=== PATIENT | female | born 1995 | race African-American/Black ===

== ENCOUNTER 2016-08-29 22:49 | Emergency (ER) | payer OTHER ==
[~2016-08-29] VITALS: Ht 152.4 cm; Wt 49.9 kg
[~2016-08-29 22:49] MED LIST: ACET-704 PO; AZIT250T PO; BENZ100C PO; HYDR30CR61 TP; IBUP-1060 PO; NAPR250T2 PO; PENI500T PO; PRED20TA PO; PRED50TA PO; PROAIR HFA8.5 GM INH
[2016-08-29 22:57] VITALS: BP 96/58
--- NOTE | 2016-08-30 00:22 | PHYS DOC ---
Past Medical History Past Medical History: No Pertinent History Past Surgical History: No Surgical History Additional Information: nonsmoker Alcohol Use: None Drug Use: None Adult General Chief Complaint Chief Complaint: MULTIPLE COMPLAINTS HPI HPI Patient is a 21 year old female who presents with URI symptoms for 1 week. She reports subjective fever, sore throat, nonproductive cough, and nasal congestion. She has had loose stools with each meal eaten. She denies shortness of breath, ear pain, nausea, vomiting, or abdominal pain. She denies any known sick contacts. Her LMP was 07/10/16. She does not have a PCP. Review of Systems Review of Systems Constitutional: Reports subjective fever. Eyes: Denies change in visual acuity, redness, or eye pain. [] HENT: Denies ear pain. Reports sore throat and nasal congestion. Respiratory: Denies shortness of breath. Reports nonproductive cough. Cardiovascular: Denies chest pain, palpitations or edema. [] GI: Denies abdominal pain, nausea, vomiting, bloody stools. Reports loose stools. : Denies dysuria, hematuria or urinary frequency. [] Musculoskeletal: Denies back pain or joint pain. Reports body aches. Integument: Denies rash or skin lesions. [] Neurologic: Denies focal weakness or sensory changes. Reports headache. Endocrine: Denies polyuria or polydipsia. [] Psych: Denies anxiety or depression. [] All systems reviewed and negative unless otherwise stated in the HPI. Allergies Allergies Allergies Coded Allergies Type Severity Reaction Last Updated Verified No Known Drug Allergies 08/25/14 No Physical Exam Physical Exam Constitutional: Well developed, well nourished, no acute distress, non-toxic appearance. [] HENT: Normocephalic, atraumatic, bilateral external ears normal, oropharynx moist, no oral exudates, nose normal. Bilateral TMs without erythema or bulging. There is no posterior pharyngeal erythema or tonsillar edema. There is cobblestoning of the posterior pharynx with purulent post-nasal drip. Bilateral nasal turbinates are swollen and erythematous with purulent drainage. Eyes: PERRLA, EOMI, conjunctiva normal, no discharge. [] Neck: Normal range of motion, no tenderness, supple, no stridor. [] Cardiovascular: Heart rate regular rhythm, no murmur [] Lungs & Thorax: Bilateral breath sounds clear to auscultation without wheezes, rales, or rhonchi. Abdomen: Bowel sounds normal, soft, no tenderness, no masses, no pulsatile masses. [] Skin: Warm, dry, no erythema, no rash. [] Back: No tenderness, no CVA tenderness. [] Extremities: No tenderness, no cyanosis, no clubbing, ROM intact, no edema. [] Neurologic: Alert and oriented X 3, normal motor function, normal sensory function, no focal deficits noted. [] Psychologic: Affect normal, judgement normal, mood normal. [] Current Patient Data Vital Signs Vital Signs Date Time Temp Pulse Resp B/P Pulse Ox O2 Delivery O2 Flow Rate FiO2 08/29/16 22:57 97.9 100 18 100 Room Air 97.9 Lab Values Laboratory Tests Test 08/29/16 23:21 POC Urine HCG, Qualitative Hcg positive (Negative) EKG EKG [] Radiology/Procedures Radiology/Procedures [] Course & Med Decision Making Course & Med Decision Making Pertinent Labs and Imaging studies reviewed. (See chart for details) [] Dragon Disclaimer Dragon Disclaimer This electronic medical record was generated, in whole or in part, using a voice recognition dictation system. Departure Departure Impression: Primary Impression: Viral syndrome Disposition: HOME, SELF-CARE Condition: STABLE Referrals: NO PCP (PCP) Patient Instructions: Viral Syndrome Additional Instructions: Your symptoms appear to be caused by a virus. Viral infections are not treated with antibiotics. Your test is positive. Please take Tylenol for fever or pain. Ibuprofen is not recommended during . Please begin taking vitamins daily. Please follow up with the OB doctor listed below for routine care. Return to the emergency department if you have any new or concerning symptoms. Scripts Vits W-Ca,Fe,Fa(<1MG) ( Vitamins)1 Each Tablet1 Each PO DAILY # 30 Prov:KAREN QUILES 08/30/16 KAREN QUILES Aug 30, 2016 00:22
[2016-08-30] MEDS ORDERED: PREN1TAB58 PO (00:34)
== END 2016-08-30 00:43 | disposition home or self-care (01) ==
LOC: ER 22:49
DX: B34.9 Viral infection, unspecified (principal); R19.7 Diarrhea, unspecified
CPT/HCPCS: 81025; 99282

== ENCOUNTER 2016-10-04 17:14 | Inpatient (IN) | payer OTHER ==
[~2016-10-04] VITALS: Ht 165.1 cm; Wt 49.0 kg
[~2016-10-04 17:14] MED LIST changes: +PREN1TAB58 PO
[2016-10-04] MEDS ORDERED: TERBUTALINE 1 MG/ML VIAL. SQ PRN (17:30)
[2016-10-04] MEDS ORDERED: OXYTOCIN 30 UNIT/500 ML PREMIX 500 ML IV PRN (17:30)
[2016-10-04] MEDS ORDERED: LIDOCAINE 1% PF 30 ML VIAL. INJ PRN (17:30)
[2016-10-04] MEDS ORDERED: ONDANSETRON PF 4 MG/2 ML VIAL. IV PRN (17:30)
[2016-10-04] MEDS ORDERED: 0.9 % SODIUM CHLORIDE 10 ML DISP.SYRIN. IV PRN (17:30)
[2016-10-04] MEDS ORDERED: IBUPROFEN 600 MG TABLET. PO PRN (17:30)
[2016-10-04] MEDS: IV RINGERS,LACTATED 1000ML 1,000 ML IV SCH ×2 (17:52→22:08)
[2016-10-04] MEDS: BUTORPHANOL 2 MG/ML VIAL. IV PRN ×3 (17:52→22:09)
--- NOTE | 2016-10-04 17:59 | PDOC1 ---
OB - History Hx of Present Care: Limited Care Ultrasounds: Other (Initial sono 2 wks. ) Obstetrical Complications: Other (H/o PTL/PTD and IUFD at 27 wks.) Medical Complications: None Past Family/Social History * Past Medical, Surgical, Family and Obstetric Histories reviewed from chart. Blood Type: AB+ Rubella: Immune RPR/VDRL: Negative GBS Status: Unknown HBsAG: Negative OB - Chief Complaint & HPI Date of Admission: Date of Admission: October 04, 2016 at 17:14 Chief Complaint/History : 5 Para: 4 EGA: 21 Reason for admission: labor Admission Nurse Assessment Rev: Yes Problems: OB - Admission Exam Physical Exam HEENT: Normal Heart: Regular Rate (tachycardia) Lungs: Clear, Equal Abdomen: Gravid, Soft, Tender Extremities: Edema Reflexes: Normal Cervical Dilatation: 10cm Effacement: 100% Station: -2 Membranes: Intact Amniotic Fluid: Clear Heart Rate: Normal Accelerations: Accelerations Present Decelerations: No decelerations Contractions on Admission: 6-10 Minutes Apart Intensity: Firm Text A: 21 wks IUP PTL with advanced cervical dilation H/o IUFD @ 27wks H/o PTL/PTD P: Admit for PTL management. Counseled family on viability and PTL. Pain management and expectant management. TAMI BEACH Jr, MD October 04, 2016 17:59
[2016-10-04 18:38] LABS: HEMOGLOBIN 11.6 g/dL (12.0-15.5); RED BLOOD COUNT 4.87 x10^6/uL (3.50-5.40); WHITE BLOOD COUNT 9.1 x10^3/uL (4.0-11.0)
[2016-10-04 18:39] VITALS: BP 110/57
[2016-10-04] MEDS: fentaNYL PF VIAL 100 MCG/2 ML VIAL IV PRN (18:54)
[2016-10-04] MEDS ORDERED: diphenhydrAMINE 50 MG/ML VIAL IVP PRN (21:15)
[2016-10-04] MEDS ORDERED: LORazepam 1 MG TABLET PO PRN (21:15)
[2016-10-05] MEDS: fentaNYL PF VIAL 100 MCG/2 ML VIAL IV PRN (01:39)
[2016-10-05] MEDS: BUTORPHANOL 2 MG/ML VIAL. IV PRN (03:04)
[2016-10-05] MEDS ORDERED: MAGNESIUM HYDROXIDE 2,400 MG/30 ML ORAL.SUSP. PO PRN (06:15)
[2016-10-05] MEDS ORDERED: SIMETHICONE 80 MG TAB.CHEW PO PRN (06:15)
[2016-10-05] MEDS ORDERED: HYDROCORTISONE 1% TOPICAL OINTMENT 30GM TUBE. TP PRN (06:15)
[2016-10-05] MEDS ORDERED: BENZOCAINE 20% TOPICAL AEROSOL SPRAY 57GM CAN. TP PRN (06:15)
[2016-10-05] MEDS ORDERED: HYDROcodone/APAP 5/325MG 1 TAB TABLET PO PRN (06:15)
[2016-10-05] MEDS ORDERED: 0.9 % SODIUM CHLORIDE 10 ML DISP.SYRIN. IV PRN (06:15)
[2016-10-05] MEDS ORDERED: PHENYLEPH/MINERAL OIL/PETROLAT RECTAL OINTMENT 28GM TUBE. RC PRN (06:15)
[2016-10-05] MEDS ORDERED: ACETAMINOPHEN 325 MG TABLET. PO PRN (06:15)
[2016-10-05] MEDS ORDERED: OXYTOCIN 30 UNIT/500 ML PREMIX 500 ML IV PRN (06:15)
[2016-10-05] MEDS ORDERED: BENZOCAINE/MENTHOL LOZENGE. PO PRN (06:15)
[2016-10-05] MEDS ORDERED: MAG HYDROX/ALUMINUM HYD/SIMETH 30 ML ORAL.SUSP PO PRN (06:15)
[2016-10-05] MEDS ORDERED: IBUPROFEN 600 MG TABLET. PO PRN (06:15)
[2016-10-05] MEDS ORDERED: diphenhydrAMINE HCL 25 MG CAPSULE PO PRN (06:15)
[2016-10-05] MEDS ORDERED: ZOLPIDEM 5 MG TABLET. PO PRN (06:15)
[2016-10-05] MEDS ORDERED: MMR per PROTOCOL. MC PRN (06:15)
[2016-10-05] MEDS ORDERED: AMMONIA AROMATIC 15% INHALANT AMPUL. ONE (06:50)
--- NOTE | 2016-10-05 08:57 | PDOC ---
VAGINAL DELIVERY DATE DATE: 10/05/16 TIME: 08:56 : 5 Para: 4 EGA: 21 VAGINAL DELIVERY: BREECH VACCUM ASSISTED: Yes PLACENTA: Spontaneous 0/0 SEX: Male WEIGHT Weight [ ] Nuchal Cord: No Amniotic Fluid: Other (bloody) PAIN: Natural EPISIOTOMY: No EXTENSION: No EBL 100 ml COMPLICATIONS IUFD CONDITION pt. stable Signs of Intrauterine Infectio: None Shoulder Dystocia: No Problems: TAMI BEACH Jr, MD October 05, 2016 08:57
--- NOTE | 2016-10-05 08:58 | DISCH ---
DISCHARGE INSTRUCTIONS Condition on Discharge Condition on Discharge: Stable Activity After Discharge Activity Instructions for Disc: Activity as tolerated Lifting Instructions after Dis: No heavy lifting Driving Instructions after Dis: Do not drive today Diet after Discharge Diet after Discharge: Regular Contacting the DRKat after DC Call your doctor for: Concerns you may have Follow-Up Follow up with: Dr. Ron in 2 week. TAMI RON Jr, MD October 05, 2016 08:58
[2016-10-05] MEDS ORDERED: IBUP-1060 PO (09:00)
[2016-10-06] MEDS ORDERED: FERROUS SULFATE 325 MG TABLET. PO SCH (08:00)
[2016-10-06 09:21] LABS: RPR REFLEX Non Reactive (Non Reactive)
--- NOTE | 2016-10-12 11:05 | PATHOLOGY ---
PATHOLOGY REPORT * * * * * * * * FINAL DIAGNOSIS: 133 gram placenta of an estimated 21-22 weeks gestation with attached membranes and umbilical cord. - Velamentous insertion of umbilical cord. - Acute chorionitis, focal. - Villous edema. - Blood clot. See comment. COMMENT: There is a large amount of blood clot which accompanies the specimen. As such, I cannot exclude the possibility of placental abruption, although specific changes of such are not identified in the placental sections. REPORT ELECTRONICALLY SIGNED BY: Jarad Leos M.D. DATE/TIME: 10/11/2016 17:59 * * * * * * * * GROSS PATHOLOGY: The specimen is received in formalin labeled "Rochelle Rios," and additionally labeled on the requisition as, "placenta and cord". Received is a premature placenta, with a moderate amount of attached blood coagulum, measuring 10.5 x 9.2 x 2.5 cm in greatest dimensions and weighing 133 grams. The membranes are pink-jeffrey and translucent in appearance and the site of membrane rupture is 8.2 cm from the closest placental margin. The 3 vessel umbilical cord measures 22.2 cm in length and ranges in diameter from 1.0 to 1.3 cm and displays a velamentous insertion. The umbilical cord is white-baca jeffrey in appearance with minimal helical twisting. The surface is intact. The maternal surface is intact to shaggy and disrupted in appearance. Sectioning reveals light baca cut surfaces with no grossly distinct nodules or lesions. Also received within the specimen container is a large amount of blood coagulum measuring 14.8 x 13.9 x 6.6 cm in aggregate dimensions. The specimen is submitted representatively as follows: A1 wireless sales representative cross-section of umbilical cord and base of umbilical cord to display velamentous insertion A2 membrane roll A3 full-thickness placental cross-section. ([facility]AA; 10/09/2016) INITIAL CPT CODE(S): A; 46564 Professional services performed by [facility] at [address] [address] Technical services performed by [facility] at [address] [place] [address], [address], [place] [address]. SPECIMEN(S) RECEIVED: A.Placenta and cord CLINICAL HISTORY: labor, decreased heart tones, , possible abruption of placenta, 21.4 week demise L3 PATIENT: ROCHELLE RIOS /AGE: 901/18/1995 (Age: 21) PATIENT #: [id number] ALT CASE #: SPECIMEN COLLECTION DATE: 10/05/2016 SPECIMEN RECEIVED DATE: 10/07/2016 [facility] - [id number] [place] [address] - PHONE: [phone] * * * END OF REPORT * * *
== END 2016-10-05 13:00 | disposition home or self-care (01) | DRG 775 ==
LOC: 3 SO LND 17:14 → OBSVTOIN 17:34
PROVIDERS: ADMIT Obstetrics & Gynecology; ATTEND Obstetrics & Gynecology
PROC: 10D07Z6 Extraction of Products of Conception, Vacuum, Via Natural or Artificial Opening (ICD-10-PCS; principal; 2016-10-05)
DX: O60.12X0 Preterm labor second trimester with preterm delivery second trimester, not applicable or unspecified (principal); O36.4XX0 Maternal care for intrauterine death, not applicable or unspecified; O32.1XX0 Maternal care for breech presentation, not applicable or unspecified; Z37.1 Single stillbirth; Z3A.27 27 weeks gestation of pregnancy
CPT/HCPCS: 36415; 85027; 86593; 86850; 86900; 86901; 88305; G0379; J1200; J2060; J2590; J3010; J7120; Q0163

== ENCOUNTER 2016-10-10 18:29 | Emergency (ER) | payer OTHER ==
[~2016-10-10] VITALS: Ht 152.4 cm; Wt 49.9 kg
[2016-10-10] MEDS ORDERED: KETOROLAC TROMETHAMINE 60 MG/2 ML INJ. IM ONE (20:30)
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
[2016-10-10 21:36] VITALS: BP 101/74
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
== END 2016-10-10 22:25 | disposition home or self-care (01) ==
LOC: ER 18:29
DX: O72.1 Other immediate postpartum hemorrhage (principal); O90.89 Other complications of the puerperium, not elsewhere classified; R07.89 Other chest pain; M54.5 Low back pain; V89.2XXA Person injured in unspecified motor-vehicle accident, traffic, initial encounter; Y92.413 State road as the place of occurrence of the external cause; Y93.89 Activity, other specified; Y99.8 Other external cause status
CPT/HCPCS: 71020; 72100; 76856; 96372; 99284; J1885